=== PATIENT | female | born 1960 | race Caucasian/White ===

== ENCOUNTER 2016-09-21 08:35 | Day surgery (SDC) | payer BC ==
[~2016-09-21 08:35] MED LIST: Lactated Ringers 1,000 ML IV SCH; Sodium Chloride 0.9% 10 ML Syringe FLUSH PRN; Sodium Chloride 0.9% 2.5 ML Syringe FLUSH PRN
--- NOTE | 2016-09-21 09:46 | PCM.PREANE ---
Preanesthetic Assessment - Anesthesia/Transfusion/Family Hx Anesthesia History: Prior Anesthesia Without Reaction Other Type of Anesthesia Reaction Comment: hx: Nausea post anesthesia, hx: Motion sickness Family History of Anesthesia Reaction: No Transfusion History: No Prior Transfusion(s) Intubation History: Unknown - Review of Systems General: No Symptoms Pulmonary: No Symptoms Cardiovascular: No Symptoms Gastrointestinal: Difficulty Swallowing Neurological: No Symptoms Other: Reports: None - Physical Assessment Height: 1.61 m Weight: 111.584 kg ASA Class: 2 Mental Status: Alert & Oriented x3 Airway Class: Mallampati = 2 Dentition: Reports: Gate(s) (few at the bottom), Broken Tooth/Teeth (x1 lower jaw) Thyro-Mental Finger Breadths: 2 Mouth Opening Finger Breadths: 3 ROM/Head Extension: Limited/Partial Lungs: Clear to Auscultation, Normal Respiratory Effort Cardiovascular: Regular Rate, Regular Rhythm - Allergies Allergies/Adverse Reactions: Allergies Allergy/AdvReac Type Severity Reaction Status Date / Time nitrofurantoin Allergy Dizziness Verified 04/10/15 16:20 [From Macrobid] nitrofurantoin Allergy Dizziness Verified 04/10/15 16:20 macrocrystalline [From Macrobid] povidone-iodine Allergy Rash Verified 04/10/15 16:20 [From Betadine] soap [From Betadine] Allergy Rash Verified 04/10/15 16:20 spinach Allergy Anaphylactic Verified 04/10/15 16:20 Shock - Blood Blood Available: No - Anesthesia Plan Pre-Op Medication Ordered: None - Acknowledgements Anesthesia Type Planned: MAC Pt an Appropriate Candidate for the Planned Anesthesia: Yes Alternatives and Risks of Anesthesia Discussed w Pt/Guardian: Yes Pt/Guardian Understands and Agrees with Anesthesia Plan: Yes PreAnesthesia Questionnaire HEENT History: Reports: Other (See Below) Other HEENT History: wears glasses Cardiovascular History: Reports: Other (See Below) (occasional spikes in blood pressure) Respiratory History: Reports: SOB Other Respiratory History: "Use inhaler to relieve allergy induced SOB" Gastrointestinal History: Reports: GERD, Other (See Below) (IBS, difficulty swallowing (dysphagia)) Genitourinary History: Reports: None Musculoskeletal History: Reports: Back Pain, Chronic, Fracture Other Musculoskeletal History: hx: Fractured Rt Femur 10 yrs of age, Low back pain Neurological History: Reports: Migraines Other Neuro History: hx: Childhood Febrile Seizures, hx of migraines in the past Psychiatric History: Reports: Anxiety, Depression Other Psychiatric History: Mild depression, "no chronic issues" Endocrine/Metabolic History: Reports: Obesity/BMI 30+ (BMI 42.9) Immunologic History: Dermatologic History: Reports: Other (See Below) Other Dermatologic History: mx of MRSA under breast 11 yrs ago, - Past Surgical History Head Surgeries/Procedures: Reports: None HEENT Surgical History: Reports: Tonsillectomy GI Surgical History: Reports: Hernia, Inguinal, Hernia Repair/Other (umbilical) Other GI Surgeries/Procedures: Prior Umbilical hernia repair x2 Female Surgical History: Reports: Hysterectomy, Tubal Ligation Other Female Surgeries/Procedures: Vaginal Hysterectomy Musculoskeletal Surgical History: Reports: Other (See Below) Other Musculoskeletal Surgeries/Procedures:: closed reduction rt femur with cast application at age 10 - SUBSTANCE USE Smoking Status *Q: Never Smoker Recreational Drug Use History: No - HOME MEDS Home Medications: Home Meds Albuterol [Proair HFA] 1 - 2 inh INH ASDIRECTED PRN 04/10/15 [History] Montelukast Sodium 1 tab PO BEDTIME 04/10/15 [History] Omeprazole 20 mg PO DAILY 09/16/16 [History] - CURRENT (IN HOUSE) MEDS Current Meds: Current Medications Lactated Ringer's (Ringers, Lactated) 1,000 mls @ 125 mls/hr IV ASDIRECTED RACHEL Sodium Chloride (Saline Flush) 10 ml FLUSH ASDIRECTED PRN PRN Reason: Keep Vein Open Sodium Chloride (Saline Flush) 2.5 ml FLUSH ASDIRECTED PRN PRN Reason: Keep Vein Open
[2016-09-21] MEDS ORDERED: Lidocaine 2% 5 ML SDV ONE (10:10)
[2016-09-21] MEDS ORDERED: fentaNYL 100 MCG/2 ML SDV ONE (10:11)
[2016-09-21] MEDS ORDERED: Propofol 200 MG/20 ML SDV ONE (10:11)
[2016-09-21] MEDS ORDERED: Midazolam 1 MG/ML 2 ML SDV ONE (10:11)
--- NOTE | 2016-09-21 11:14 | PCM.OPNOTE ---
- General Post-Op/Procedure Note Date of Surgery/Procedure: 09/21/16 Operative Procedure(s): diagnostic EGD & Colonoscopy Findings: EGD: 1. Hiatal Hernia 2. Duodenitis 3. Duodenal Polyps Colonoscopy: 1. Sigmoid Diverticulosis 1. Cecal Polyp 2. Hepatic Flexure Polyp Pre Op Diagnosis: diagnostic EGD & Colonoscopy Post-Op Diagnosis: 1. Hiatal Hernia. 2. Duodenitis. 3. Duodenal Polyps. 4. Sigmoid Diverticulosis. 5. Cecal Polyp. 6. Hepatic Flexure Polyp Anesthesia Technique: [facility] Primary Surgeon: Oly Bynum Complications: None Condition: Good
--- NOTE | 2016-09-21 11:45 | PCM.POSTAN ---
POST ANESTHESIA ASSESSMENT - MENTAL STATUS Mental Status: Alert, Oriented - RESPIRATORY Respiratory Status: respiratory rate WNL - CARDIOVASCULAR CV Status: Pulse Rate WNL, Blood Pressure Stable - GASTROINTESTINAL GI Status: No Symptoms - PAIN Pain Score: 0 - POST OP HYDRATION Hydration Status: Adequate & Stable - OBSERVATIONS Free Text/Narrative:: no anesthesia problems
[2016-09-21 12:16] VITALS: BP 125/83
--- NOTE | 2016-09-23 06:15 | OR ---
SURGEON: OLIVER REYES MD DATE OF PROCEDURE: 09/21/2016 PREOPERATIVE DIAGNOSES: Dysphagia, screening colonoscopy. POSTOPERATIVE DIAGNOSES: 1. Hiatal hernia. 2. Duodenitis. 3. Duodenal polyps. 4. Sigmoid diverticulosis. 5. Cecal polyp. 6. Hepatic flexure polyp. 7. Grade 2 hemorrhoids. PROCEDURE PERFORMED: Diagnostic esophagogastroduodenoscopy and screening colonoscopy. ANESTHESIA: MAC. EXTENT OF EXAM: To the second portion of duodenum, to the cecum. INSTRUMENT USED: Olympus colonoscope and Olympus endoscope. PREPARATION: Good. LIMITATIONS: None. INDICATIONS: The patient is a 55-year-old female with a longstanding history of GERD, that has recently gotten worse. She is also in need of a screening colonoscopy as she has never had one done. The patient and I discussed the procedure as well as expected perioperative course. We discussed the risks, including bleeding, infection, or damage to surrounding structures, including perforation. The patient verbalized understanding and wished to proceed. PROCEDURE IN DETAIL: The patient was brought to the endoscopy suite and placed in a beach chair position. A time-out was completed verifying the patient's name, age, date of , allergies, and procedure to be performed. A bite-block was placed in the patient's mouth and monitored anesthesia care induced. Continuous oxygen was provided via nasal cannula throughout the procedure. After adequate sedation was achieved, the Olympus endoscope was placed in the patient's mouth and advanced under direct visualization to the level of the second portion of duodenum. This appeared normal and a photograph was taken. The scope was then fully withdrawn while examining the color, texture, anatomy, and integrity of the mucosa from the cecum to the anal canal. The duodenal bulb had multiple hyperplastic appearing polyps, some of which appeared to be inflamed with stigmata of bleeding. The largest area of these polyps was located anteriorly in the duodenal bulb. Biopsies were taken of this area, given I could not tell if this was a healing ulcer versus just duodenal polyps. The scope was then brought into the stomach and photographs were taken of the pylorus as well as the esophageal hiatus. The patient was noted to have a small type 1 hiatal hernia. The gastric mucosa appeared normal with no evidence of inflammation or ulceration. Biopsies were taken of the gastric antrum, body, and fundus and sent for H. pylori testing. The scope was then brought into the distal esophagus and a photograph was taken of the hiatal hernia sac. The sac itself did not appear overtly inflamed or with any evidence of ulceration. The distal esophagus had no evidence of esophagitis and the Z-line was sharp indicating that it was normal. The scope was then fully withdrawn and the remainder of the esophageal mucosa appeared normal. This portion of procedure was then terminated. The patient was placed in left lateral decubitus position. A digital rectal exam was performed. This showed grade 2 hemorrhoids. A well-lubricated colonoscope was then inserted in the rectum and advanced under direct visualization to the level of the cecum. The cecum was identified by both visual and anatomic landmarks. A photograph was taken of the cecal cap, however, due to significant looping of the scope more proximally, I was unable to retroflex the scope within the cecum. The scope was then fully withdrawn while examining the color, texture, anatomy, and integrity of the mucosa from the cecum to the anal canal. The patient had a 2 mm pedunculated polyp within the cecum as well as at the hepatic flexure. Both of these were removed with a cold biopsy forceps and sent to pathology. The patient was also noted to have sigmoid diverticulosis. The scope was then brought into the rectum and retroflexed to allow visualization of the anal canal opening. This confirmed the hemorrhoidal disease that I noted on my digital rectal exam, but was otherwise normal. The scope was then straightened out and then removed from the patient. The cecum to anus time was 11 minutes. The patient tolerated the procedure well and was taken to the PACU in stable condition. ENDOSCOPIC DIAGNOSES: Hiatal hernia, duodenitis, duodenal polyps, sigmoid diverticulosis, grade 2 hemorrhoids, cecal polyp, hepatic flexure polyp. RECOMMENDATIONS: We will have the patient continue on current medications. I will see her in followup in clinic in 2 to 3 weeks. CHAYA JONES /[id number]
== END 2016-09-21 11:52 | disposition home or self-care (01) ==
LOC: MW.SDS 08:35
PROVIDERS: ATTEND Surgery
PROC: 0DB98ZZ Excision of Duodenum, Via Natural or Artificial Opening Endoscopic (ICD-10-PCS; principal; 2016-09-21)
PROC: 0DB68ZZ Excision of Stomach, Via Natural or Artificial Opening Endoscopic (ICD-10-PCS; 2016-09-21)
PROC: 0DB78ZZ Excision of Stomach, Pylorus, Via Natural or Artificial Opening Endoscopic (ICD-10-PCS; 2016-09-21)
PROC: 0DBH8ZZ Excision of Cecum, Via Natural or Artificial Opening Endoscopic (ICD-10-PCS; 2016-09-21)
PROC: 0DBK8ZZ Excision of Ascending Colon, Via Natural or Artificial Opening Endoscopic (ICD-10-PCS; 2016-09-21)
DX: K29.80 Duodenitis without bleeding (principal); Z12.11 Encounter for screening for malignant neoplasm of colon; K29.50 Unspecified chronic gastritis without bleeding; K44.9 Diaphragmatic hernia without obstruction or gangrene; K21.9 Gastro-esophageal reflux disease without esophagitis; D12.0 Benign neoplasm of cecum; D12.3 Benign neoplasm of transverse colon; K57.30 Diverticulosis of large intestine without perforation or abscess without bleeding; K64.9 Unspecified hemorrhoids; K58.9 Irritable bowel syndrome, unspecified; J30.9 Allergic rhinitis, unspecified
CPT/HCPCS: 43239; 45380; J2250; J3010; J7120; 00740; 88305; 88312; J2704

== ENCOUNTER 2018-11-26 11:37 | Observation (INO) | payer BC ==
[2018-11-26] MEDS ORDERED: Sodium Chloride 0.9% 500 ML IV SCH (11:45)
--- NOTE | 2018-11-26 11:46 | EDM.PDOC ---
ED HPI GENERAL MEDICAL PROBLEM - General Stated Complaint: NUMBNESS, DIZZY, SHORTNESS OF BREATH Time Seen by Provider: 11/26/18 11:43 Source of Information: Reports: Patient - History of Present Illness INITIAL COMMENTS - FREE TEXT/NARRATIVE: HISTORY AND PHYSICAL: History of present illness: [Patient with recent pneumonia diagnosis on Levaquin day 5 of 7 with dizziness weakness increase shortness breath no fever nausea vomiting chills sweats no apparent distress] Review of systems: As per history of present illness and below otherwise all systems reviewed and negative. Past medical history: As per history of present illness and as reviewed below otherwise noncontributory. Surgical history: As per history of present illness and as reviewed below otherwise noncontributory. Social history: No reported history of drug or alcohol abuse. Family history: As per history of present illness and as reviewed below otherwise noncontributory. Physical exam: HEENT: Atraumatic, normocephalic, pupils reactive, negative for conjunctival pallor or scleral icterus, mucous membranes moist, throat clear, neck supple, nontender, trachea midline. Lungs: Clear to auscultation, breath sounds equal bilaterally, chest nontender. Heart: S1S2, regular, negative for clicks, rubs, or JVD. Abdomen: Soft, nondistended, nontender. Negative for masses or hepatosplenomegaly. Negative for costovertebral tenderness. Pelvis: Stable nontender. Genitourinary: Deferred. Rectal: Deferred. Extremities: Atraumatic, negative for cords or calf pain. Neurovascular unremarkable. Neuro: Awake, alert, oriented. Cranial nerves II through XII unremarkable. Cerebellum unremarkable. Motor and sensory unremarkable throughout. Exam nonfocal. Diagnostics: [CBC CMP UA troponin blood cultures 2 EKG Chest 1 view ] Therapeutics: Normal saline DuoNeb [ Zosyn ] Impression: [ pneumonia ] Conservative management Definitive disposition and diagnosis as appropriate pending reevaluation and review of above. low back Pain Score (Numeric/FACES): 4 - Related Data Allergies Allergy/AdvReac Type Severity Reaction Status Date / Time nitrofurantoin Allergy Dizziness Verified 04/10/15 16:20 [From Macrobid] nitrofurantoin Allergy Dizziness Verified 04/10/15 16:20 macrocrystalline [From Macrobid] povidone-iodine Allergy Rash Verified 04/10/15 16:20 [From Betadine] soap [From Betadine] Allergy Rash Verified 04/10/15 16:20 spinach Allergy Anaphylactic Verified 04/10/15 16:20 Shock Home Meds: Home Meds Albuterol [Proair HFA] 1 - 2 inh INH ASDIRECTED PRN 04/10/15 [History] Montelukast Sodium 1 tab PO BEDTIME 04/10/15 [History] Omeprazole 20 mg PO DAILY 09/16/16 [History] Past Medical History HEENT History: Reports: Other (See Below) Other HEENT History: wears glasses Cardiovascular History: Reports: Other (See Below) Respiratory History: Reports: SOB Other Respiratory History: "Use inhaler to relieve allergy induced SOB" Gastrointestinal History: Reports: GERD, Other (See Below) Genitourinary History: Reports: None Musculoskeletal History: Reports: Back Pain, Chronic, Fracture Other Musculoskeletal History: hx: Fractured Rt Femur 10 yrs of age, Low back pain Neurological History: Reports: Migraines Other Neuro History: hx: Childhood Febrile Seizures, hx of migraines in the past Psychiatric History: Reports: Anxiety, Depression Other Psychiatric History: Mild depression, "no chronic issues" Endocrine/Metabolic History: Reports: Obesity/BMI 30+ Immunologic History: Dermatologic History: Reports: Other (See Below) Other Dermatologic History: mx of MRSA under breast 11 yrs ago, - Past Surgical History Head Surgeries/Procedures: Reports: None HEENT Surgical History: Reports: Tonsillectomy GI Surgical History: Reports: Hernia, Inguinal, Hernia Repair/Other Other GI Surgeries/Procedures: Prior Umbilical hernia repair x2 Female Surgical History: Reports: Hysterectomy, Tubal Ligation Other Female Surgeries/Procedures: Vaginal Hysterectomy Musculoskeletal Surgical History: Reports: Other (See Below) Other Musculoskeletal Surgeries/Procedures:: closed reduction rt femur with cast application at age 10 ED ROS GENERAL - Review of Systems Review Of Systems: See Below ED EXAM, GENERAL - Physical Exam Exam: See Below Course - Vital Signs Last Recorded V/S: Last Vital Signs Temp 97.7 F 11/26/18 11:50 Pulse 72 11/26/18 13:05 Resp 18 11/26/18 13:05 BP 151/83 H 11/26/18 13:05 Pulse Ox 94 L 11/26/18 13:05 - Orders/Labs/Meds Orders: Active Orders 24 hr Category Date Time Status EKG Documentation Completion [RC] STAT Care 11/26/18 11:43 Active RT Aerosol Therapy [RC] ASDIRECTED Care 11/26/18 11:58 Active CULTURE BLOOD [BC] Stat Lab 11/26/18 13:34 Ordered CULTURE BLOOD [BC] Stat Lab 11/26/18 13:34 Ordered CULTURE URINE [RM] Stat Lab 11/26/18 12:05 Received Piperacillin/Tazobactam [Piperacil-Tazobact] 3.375 gm Med 11/26/18 13:32 Active Sodium Chloride 0.9% [Normal Saline] 50 ml IV ONETIME Sodium Chloride 0.9% [Normal Saline] 1,000 ml Med 11/26/18 13:45 Active IV STAT Sodium Chloride 0.9% [Normal Saline] 500 ml Med 11/26/18 11:45 Active IV STAT Blood Culture x2 Reflex Set [OM.PC] Stat Oth 11/26/18 13:34 Ordered Medication Orders Sodium Chloride (Normal Saline) 500 mls @ 999 mls/hr IV STAT RACHEL Last Admin: 11/26/18 12:17 Dose: 999 mls/hr Piperacillin Sod/Tazobactam (Sod 3.375 gm/ Sodium Chloride) 50 mls @ 100 mls/ hr IV ONETIME ONE Stop: 11/26/18 14:01 Sodium Chloride (Normal Saline) 1,000 mls @ 125 mls/hr IV STAT [facility] Labs: Laboratory Tests 11/26/18 11/26/18 11/26/18 Range/Units 11:56 11:56 12:05 WBC 12.46 H (4.0-11.0) K/uL RBC 5.06 (4.30-5.90) M/uL Hgb 15.0 (12.0-16.0) g/dL Hct 46.7 H (36.0-46.0) % MCV 92.3 (80.0-98.0) fL MCH 29.6 (27.0-32.0) pg MCHC 32.1 (31.0-37.0) g/dL RDW Std Deviation 46.7 (28.0-62.0) fl RDW Coeff of Noah 14 (11.0-15.0) % Plt Count 315 (150-400) K/uL MPV 10.00 (7.40-12.00) fL Neut % (Auto) 85.0 H (48.0-80.0) % Lymph % (Auto) 10.8 L (16.0-40.0) % [place] % (Auto) 3.7 (0.0-15.0) % Eos % (Auto) 0.2 (0.0-7.0) % Baso % (Auto) 0.3 (0.0-1.5) % Neut # (Auto) 10.6 H (1.4-5.7) K/uL Lymph # (Auto) 1.4 (0.6-2.4) K/uL [place] # (Auto) 0.5 (0.0-0.8) K/uL Eos # (Auto) 0.0 (0.0-0.7) K/uL Baso # (Auto) 0.0 (0.0-0.1) K/uL Nucleated RBC % 0.0 /100WBC Nucleated RBCs # 0 K/uL Sodium 142 (136-145) mmol/L Potassium 3.6 (3.5-5.1) mmol/L Chloride 106 (98-107) mmol/L Carbon Dioxide 26.2 (21.0-32.0) mmol/L BUN 18 (7.0-18.0) mg/dL Creatinine 0.9 (0.6-1.0) mg/dL Est Cr Clr Drug Dosing 57.40 mL/min Estimated GFR (MDRD) > 60.0 ml/min Glucose 123 H (74-106) mg/dL Calcium 8.5 (8.5-10.1) mg/dL Total Bilirubin 0.7 (0.2-1.0) mg/dL AST 15 (15-37) IU/L ALT 13 L (14-63) IU/L Alkaline Phosphatase 111 (46-116) U/L Troponin I < 0.050 (0.000-0.056) ng/mL Total Protein 6.9 (6.4-8.2) g/dL Albumin 2.9 L (3.4-5.0) g/dL Globulin 4.0 (2.6-4.0) g/dL Albumin/Globulin Ratio 0.7 L (0.9-1.6) Urine Color YELLOW Urine Appearance HAZY Urine pH 6.5 (5.0-8.0) Ur Specific [place] 1.025 (1.001-1.035) Urine Protein NEGATIVE (NEGATIVE) mg/dL Urine Glucose (UA) NEGATIVE (NEGATIVE) mg/dL Urine Ketones NEGATIVE (NEGATIVE) mg/dL Urine Occult Blood TRACE-INTACT H (NEGATIVE) Urine Nitrite NEGATIVE (NEGATIVE) Urine Bilirubin NEGATIVE (NEGATIVE) Urine Urobilinogen 0.2 (<2.0) EU/dL Ur Leukocyte Esterase SMALL H (NEGATIVE) Urine RBC 1-3 (0-2/HPF) Urine WBC 0-3 (0-5/HPF) Ur Epithelial Cells FEW (NONE-FEW) Urine Bacteria FEW (NEGATIVE) Urine Mucus LIGHT (NONE-MOD) Meds: Medications Generic Name Dose Route Start Last Admin Trade Name Freq PRN Reason Stop Dose Admin Sodium Chloride 500 mls @ 999 mls/hr 11/26/18 11:45 11/26/18 12:17 Normal Saline IV 999 mls/hr STAT RACHEL Administration Piperacillin Sod/Tazobactam 50 mls @ 100 mls/hr 11/26/18 13:32 Sod 3.375 gm/ Sodium Chloride IV 11/26/18 14:01 ONETIME ONE Sodium Chloride 1,000 mls @ 125 mls/hr 11/26/18 13:45 Normal Saline IV STAT RACHEL Discontinued Medications Generic Name Dose Route Start Last Admin Trade Name Freq PRN Reason Stop Dose Admin Albuterol/Ipratropium 3 ml 11/26/18 11:58 11/26/18 12:16 Duoneb 3.0-0.5 Mg/3 Ml NEB 11/26/18 11:59 3 ml ONETIME ONE Administration Departure - Departure Time of Disposition: 13:51 Disposition: Refer to Observation Condition: Fair Clinical Impression: Pneumonia - Discharge Information Referrals: Marisol Coronel PA [Primary Care Provider] - - My Orders Last 24 Hours: My Active Orders 11/26/18 11:43 EKG Documentation Completion [RC] STAT 11/26/18 11:45 Sodium Chloride 0.9% [Normal Saline] 500 ml IV STAT 11/26/18 11:58 RT Aerosol Therapy [RC] ASDIRECTED 11/26/18 12:05 CULTURE URINE [RM] Stat 11/26/18 13:32 Piperacillin/Tazobactam [Piperacil-Tazobact] 3.375 gm Sodium Chloride 0.9% [ Normal Saline] 50 ml IV ONETIME 11/26/18 13:34 CULTURE BLOOD [BC] Stat CULTURE BLOOD [BC] Stat Blood Culture x2 Reflex Set [OM.PC] Stat 11/26/18 13:45 Sodium Chloride 0.9% [Normal Saline] 1,000 ml IV STAT - Assessment/Plan Last 24 Hours: My Active Orders 11/26/18 11:43 EKG Documentation Completion [RC] STAT 11/26/18 11:45 Sodium Chloride 0.9% [Normal Saline] 500 ml IV STAT 11/26/18 11:58 RT Aerosol Therapy [RC] ASDIRECTED 11/26/18 12:05 CULTURE URINE [RM] Stat 11/26/18 13:32 Piperacillin/Tazobactam [Piperacil-Tazobact] 3.375 gm Sodium Chloride 0.9% [ Normal Saline] 50 ml IV ONETIME 11/26/18 13:34 CULTURE BLOOD [BC] Stat CULTURE BLOOD [BC] Stat Blood Culture x2 Reflex Set [OM.PC] Stat 11/26/18 13:45 Sodium Chloride 0.9% [Normal Saline] 1,000 ml IV STAT
[2018-11-26] MEDS ORDERED: Albuterol/Ipratropium 3.0-0.5 MG/3 ML Neb Soln NEB ONE (11:58)
[2018-11-26 12:37] LABS: BLOOD UREA NITROGEN,BUN 18 mg/dL (7.0-18.0); CARBON DIOXIDE,CO2 26.2 mmol/L (21.0-32.0); CHLORIDE,CL 106 mmol/L (98-107); GLUCOSE RANDOM 123 mg/dL (74-106); POTASSIUM,K 3.6 mmol/L (3.5-5.1); SODIUM,NA 142 mmol/L (136-145)
--- NOTE | 2018-11-26 12:56 | CR ---
Chest: Portable view of the chest was obtained. Comparison: Prior chest x-ray of 11/21/18. Slight increasing density within the lateral left costophrenic angle is seen when compared to prior study. Lungs otherwise are clear. Heart size and mediastinum are normal. Bony structures are unremarkable. Impression: 1. Slight increasing density within the lateral left costophrenic angle. Differential includes mild atelectasis versus minimal area of pneumonia. 2. Portable chest x-ray is otherwise unremarkable. Diagnostic code #3 MTDD
[2018-11-26] MEDS ORDERED: Piperacillin/Tazobactam 3.375 GM in Sodium Chloride 0.9% 50 ML IV ONE (13:32)
[2018-11-26] MEDS: Sodium Chloride 0.9% 1,000 ML IV SCH ×2 (13:56→21:35)
--- NOTE | 2018-11-26 14:38 | PCM.HP.2 ---
H&P History of Present Illness - General Date of Service: 11/26/18 Admit Problem/Dx: Admission Diagnosis/Problem Admission Diagnosis/Problem Pneumonia Source of Information: Patient History Limitations: Reports: No Limitations - History of Present Illness Initial Comments - Free Text/Narative: This 58 year old female with pmh of asthma and obesity presented to the ED today with concerns of shortness of breath, productive cough,dizziness, and overall just not feeling well. She reports she was diagnosed with pneumonia last week with her PCP, she was given Levaquin, on day 5 of 7 treatment. She reports she initially started feeling improved, then started feeling ill again yesterday and today. She denies overt fevers, but has some mild chills. She reports productive sputum, sinus congestion, and headache. She reports mild wheezing, she took her rescue inhaler this morning with mild improvement in symptoms. She denies chest pain, palpitations or abdominal pain. No urinary symptoms or diarrhea. She recently felt constipated and did take a laxative, which helped relieve constipation. She denies tobacco use, rare alcohol use and no recreational drug use. In the ED, mild leukocytosis noted at 12,460, BMP WNL, glucose mildly elevated at 123, Troponin negative. EKG SR with no ischemic changes. CXR reveled increasing density at left costophrenic angle. BC, UC and sputum culture to be obtained. VS stable in ED. She was treated with Zosyn. She will be admitted for failed outpatient management of CAP. PCP, Marisol Coronel. low back Pain Score (Numeric/FACES): 4 - Related Data Allergies/Adverse Reactions: Allergies Allergy/AdvReac Type Severity Reaction Status Date / Time nitrofurantoin Allergy Dizziness Verified 04/10/15 16:20 [From Macrobid] nitrofurantoin Allergy Dizziness Verified 04/10/15 16:20 macrocrystalline [From Macrobid] povidone-iodine Allergy Rash Verified 04/10/15 16:20 [From Betadine] soap [From Betadine] Allergy Rash Verified 04/10/15 16:20 spinach Allergy Anaphylactic Verified 04/10/15 16:20 Shock Home Medications: Home Meds Albuterol [Proair HFA] 1 - 2 inh INH ASDIRECTED PRN 04/10/15 [History] Montelukast Sodium 1 tab PO BEDTIME 04/10/15 [History] Omeprazole 20 mg PO DAILY 09/16/16 [History] Past Medical History HEENT History: Reports: Other (See Below) Other HEENT History: wears glasses Cardiovascular History: Reports: None. Denies: High Cholesterol, Hypertension, [place], Stents Respiratory History: Reports: Asthma. Denies: COPD Gastrointestinal History: Reports: GERD Genitourinary History: Reports: None. Denies: Chronic Renal Insuffiency Musculoskeletal History: Reports: Back Pain, Chronic, Fracture Other Musculoskeletal History: hx: Fractured Rt Femur 10 yrs of age, Low back pain Neurological History: Reports: Migraines. Denies: CVA, TIA Other Neuro History: hx: Childhood Febrile Seizures Psychiatric History: Reports: Anxiety, Depression Endocrine/Metabolic History: Reports: Obesity/BMI 30+ Immunologic History: Dermatologic History: Reports: Other (See Below) Other Dermatologic History: mx of MRSA under breast 11 yrs ago, - Infectious Disease History Infectious Disease History: Reports: Chicken Pox, MRSA, Mumps - Past Surgical History Head Surgeries/Procedures: Reports: None HEENT Surgical History: Reports: Tonsillectomy GI Surgical History: Reports: Hernia, Inguinal, Hernia Repair/Other Other GI Surgeries/Procedures: Prior Umbilical hernia repair x2 Female Surgical History: Reports: Hysterectomy, Tubal Ligation Other Female Surgeries/Procedures: Vaginal Hysterectomy Musculoskeletal Surgical History: Reports: Other (See Below) Other Musculoskeletal Surgeries/Procedures:: closed reduction rt femur with cast application at age 10 Dermatological Surgical History: Reports: Skin Graft Social & Family History - Family History Family Medical History: Noncontributory - Tobacco Use Smoking Status *Q: Never Smoker - Alcohol Use Alcohol Use Frequency: Rarely - Recreational Drug Use Recreational Drug Use: No - Living Situation & Occupation Living situation: Reports: Occupation: Employed H&P Review of Systems - Review of Systems: Review Of Systems: See Below General: Reports: Chills, Malaise, Fatigue HEENT: Reports: Headaches (frontal mild), Sinus Congestion Pulmonary: Reports: Shortness of Breath, Wheezing, Cough, Sputum Cardiovascular: Reports: Dyspnea on Exertion, Lightheadedness. Denies: Chest Pain, Edema Gastrointestinal: Reports: No Symptoms. Denies: Abdominal Pain, Black Stool, Bloody Stool, Diarrhea, Nausea, Vomiting Genitourinary: Reports: No Symptoms. Denies: Dysuria, Frequency, Burning, Flank Pain Musculoskeletal: Reports: No Symptoms Skin: Reports: No Symptoms Psychiatric: Reports: No Symptoms Neurological: Reports: No Symptoms Exam - Exam Exam: See Below - Vital Signs Vital Signs: Last Vital Signs Temp 97.6 F 11/26/18 14:08 Pulse 68 11/26/18 14:08 Resp 18 11/26/18 14:08 BP 162/84 H 11/26/18 14:08 Pulse Ox 94 L 11/26/18 14:08 Weight: 116.12 kg - Exam Quality Assessment: Supplemental Oxygen General: Alert, Oriented HEENT: Conjunctiva Clear, Mucosa Moist & [place], Posterior Pharynx Clear Lungs: Normal Respiratory Effort, Crackles (fine crackles to L base). No: Wheezing Cardiovascular: Regular Rate, Regular Rhythm, Normal S1, Normal S2. No: Systolic Murmur GI/Abdominal Exam: Normal Bowel Sounds, Soft, Non-Tender Extremities: Normal Inspection, Normal Range of Motion, Non-Tender, No Pedal Edema Neuro Extensive - Mental Status: Alert, Oriented x3, Normal Mood/Affect Neuro Extensive - Motor, Sensory, Reflexes: CN II-XII Intact Psychiatric: Alert, Normal Affect, Normal Mood - Patient Data Lab Results Last 24 hrs: Laboratory Results - last 24 hr 11/26/18 11/26/18 11/26/18 Range/Units 11:56 11:56 12:05 WBC 12.46 H (4.0-11.0) K/uL RBC 5.06 (4.30-5.90) M/uL Hgb 15.0 (12.0-16.0) g/dL Hct 46.7 H (36.0-46.0) % MCV 92.3 (80.0-98.0) fL MCH 29.6 (27.0-32.0) pg MCHC 32.1 (31.0-37.0) g/dL RDW Std Deviation 46.7 (28.0-62.0) fl RDW Coeff of Noah 14 (11.0-15.0) % Plt Count 315 (150-400) K/uL MPV 10.00 (7.40-12.00) fL Neut % (Auto) 85.0 H (48.0-80.0) % Lymph % (Auto) 10.8 L (16.0-40.0) % [place] % (Auto) 3.7 (0.0-15.0) % Eos % (Auto) 0.2 (0.0-7.0) % Baso % (Auto) 0.3 (0.0-1.5) % Neut # (Auto) 10.6 H (1.4-5.7) K/uL Lymph # (Auto) 1.4 (0.6-2.4) K/uL [place] # (Auto) 0.5 (0.0-0.8) K/uL Eos # (Auto) 0.0 (0.0-0.7) K/uL Baso # (Auto) 0.0 (0.0-0.1) K/uL Nucleated RBC % 0.0 /100WBC Nucleated RBCs # 0 K/uL Sodium 142 (136-145) mmol/L Potassium 3.6 (3.5-5.1) mmol/L Chloride 106 (98-107) mmol/L Carbon Dioxide 26.2 (21.0-32.0) mmol/L BUN 18 (7.0-18.0) mg/dL Creatinine 0.9 (0.6-1.0) mg/dL Est Cr Clr Drug Dosing 57.40 mL/min Estimated GFR (MDRD) > 60.0 ml/min Glucose 123 H (74-106) mg/dL Calcium 8.5 (8.5-10.1) mg/dL Total Bilirubin 0.7 (0.2-1.0) mg/dL AST 15 (15-37) IU/L ALT 13 L (14-63) IU/L Alkaline Phosphatase 111 (46-116) U/L Troponin I < 0.050 (0.000-0.056) ng/mL Total Protein 6.9 (6.4-8.2) g/dL Albumin 2.9 L (3.4-5.0) g/dL Globulin 4.0 (2.6-4.0) g/dL Albumin/Globulin Ratio 0.7 L (0.9-1.6) Urine Color YELLOW Urine Appearance HAZY Urine pH 6.5 (5.0-8.0) Ur Specific [place] 1.025 (1.001-1.035) Urine Protein NEGATIVE (NEGATIVE) mg/dL Urine Glucose (UA) NEGATIVE (NEGATIVE) mg/dL Urine Ketones NEGATIVE (NEGATIVE) mg/dL Urine Occult Blood TRACE-INTACT H (NEGATIVE) Urine Nitrite NEGATIVE (NEGATIVE) Urine Bilirubin NEGATIVE (NEGATIVE) Urine Urobilinogen 0.2 (<2.0) EU/dL Ur Leukocyte Esterase SMALL H (NEGATIVE) Urine RBC 1-3 (0-2/HPF) Urine WBC 0-3 (0-5/HPF) Ur Epithelial Cells FEW (NONE-FEW) Urine Bacteria FEW (NEGATIVE) Urine Mucus LIGHT (NONE-MOD) Result Diagrams: 11/26/18 11:56 11/26/18 11:56 EKG INTERPRETATION EKG Date: 11/26/18 Rhythm: NSR P-Wave: Present QRS: Normal ST-T: Normal QT: Normal *Q Meaningful Use (ADM) - VTE Risk Assess *Q Each Risk Factor Represents 1 Point: Obesity ( BMI > 25 kg/m2), Serious lung disease including pneumonia Total Score 1 Point Risk Factors: 2 Each Risk Factor Represents 2 Points: Age 60 - 74 Years Total Score 2 Point Risk Factors: 2 Each Risk Factor Represents 3 Points: None Total Score 3 Point Risk Factors: 0 Each Risk Factor Represents 5 Points: None Total Score 5 Point Risk Factors: 0 Venous Thromboembolism Risk Factor Score *Q: 4 - Problem List (1) CAP (community acquired pneumonia) SNOMED Code(s): 908333549 ICD Code: J18.9 - PNEUMONIA, UNSPECIFIED ORGANISM Status: Acute Current Visit: Yes Qualifiers: Laterality: left Lung location: lower lobe of lung Qualified Code(s): J18.1 - Lobar pneumonia, unspecified organism (2) History of asthma SNOMED Code(s): 008296401 ICD Code: Z87.09 - PERSONAL HISTORY OF OTHER DISEASES OF THE RESPIRATORY SYSTEM Status: Chronic Current Visit: Yes (3) GERD (gastroesophageal reflux disease) SNOMED Code(s): 811077082 ICD Code: K21.9 - GASTRO-ESOPHAGEAL REFLUX DISEASE WITHOUT ESOPHAGITIS Status: Chronic Current Visit: Yes Qualifiers: Esophagitis presence: esophagitis presence not specified Qualified Code(s) : K21.9 - Gastro-esophageal reflux disease without esophagitis (4) Obesity SNOMED Code(s): 206779699, 165301430 ICD Code: E66.9 - OBESITY, UNSPECIFIED Status: Chronic Current Visit: Yes Problem List Initiated/Reviewed/Updated: Yes Orders Last 24hrs: Active Orders 24 hr Category Date Time Status Admission Status [Patient Status] [ADT] Stat ADT 11/26/18 13:52 Active EKG Documentation Completion [RC] STAT Care 11/26/18 11:43 Active RT Aerosol Therapy [RC] ASDIRECTED Care 11/26/18 11:58 Active CULTURE BLOOD [BC] Stat Lab 11/26/18 13:34 Ordered CULTURE BLOOD [BC] Stat Lab 11/26/18 13:34 Ordered CULTURE URINE [RM] Stat Lab 11/26/18 12:05 Received Sodium Chloride 0.9% [Normal Saline] 1,000 ml Med 11/26/18 13:45 Active IV STAT Sodium Chloride 0.9% [Normal Saline] 500 ml Med 11/26/18 11:45 Active IV STAT Blood Culture x2 Reflex Set [OM.PC] Stat Oth 11/26/18 13:34 Ordered Medication Orders Sodium Chloride (Normal Saline) 500 mls @ 999 mls/hr IV STAT RACHEL Last Admin: 11/26/18 12:17 Dose: 999 mls/hr Sodium Chloride (Normal Saline) 1,000 mls @ 125 mls/hr IV STAT RACHEL Last Admin: 11/26/18 13:56 Dose: 125 mls/hr Assessment/Plan Comment:: This 58 year old female admitted with failed outpatient management of CAP with hx of asthma 1. CAP: Will discontinue Levaquin. Continue Zosyn, will add Azithromycin for atypical coverage. BC pending, will obtain sputum if possible. Duonebs PRN. 2. Asthma: Stable, no currently wheezing. Duonebs PRN, Continue Symbicort. 3. GERD: Continue Omeprazole. VTE prophylaxis: Lovenox. Dispo: 1-2 days pending improvement. - Mortality Measure Prognosis:: Good
[2018-11-26] MEDS ORDERED: Acetaminophen 325 MG Tab PO PRN (15:04)
[2018-11-26] MEDS ORDERED: Albuterol/Ipratropium 3.0-0.5 MG/3 ML Neb Soln NEB PRN (15:04)
[2018-11-26] MEDS ORDERED: Ondansetron 4 MG/2 ML SDV IVPUSH PRN (15:04)
[2018-11-26] MEDS: Azithromycin 250 MG Tab PO SCH (15:47)
[2018-11-26] MEDS: Enoxaparin 40 MG/0.4 ML Syringe SUBCUT SCH (15:47)
[2018-11-26] MEDS: Piperacillin/Tazobactam 3.375 GM in Sodium Chloride 0.9% 50 ML IV SCH (21:00)
[2018-11-27] MEDS: Piperacillin/Tazobactam 3.375 GM in Sodium Chloride 0.9% 50 ML IV SCH ×4 (02:01→20:30)
[2018-11-27] MEDS: Sodium Chloride 0.9% 1,000 ML IV SCH (06:05)
[2018-11-27 06:38] LABS: BLOOD UREA NITROGEN,BUN 15 mg/dL (7.0-18.0); CARBON DIOXIDE,CO2 24.3 mmol/L (21.0-32.0); CHLORIDE,CL 113 mmol/L (98-107); GLUCOSE RANDOM 91 mg/dL (74-106); POTASSIUM,K 3.7 mmol/L (3.5-5.1); SODIUM,NA 146 mmol/L (136-145)
[2018-11-27] MEDS: Omeprazole 20 MG Cap.CR PO SCH (08:35)
[2018-11-27] MEDS: DULoxetine 30 MG Cap PO SCH (08:35)
[2018-11-27] MEDS: FORMOTEROL FUMARATE INH SCH ×2 (08:37→20:25)
[2018-11-27] MEDS: BUDESONIDE INH SCH ×2 (08:37→20:25)
--- NOTE | 2018-11-27 09:20 | PCM.PN ---
- General Info Date of Service: 11/27/18 Admission Dx/Problem (Free Text): Admission Diagnosis/Problem Admission Diagnosis/Problem Pneumonia Subjective Update: Feeling tight this morning, having some shortness of breath with ambulation and wheezing. Congested non productive cough this morning. No chest pain. Feeling about the same as yesterday. NO fevers. No dizziness Functional Status: Reports: Pain Controlled, Tolerating Diet, Ambulating, Urinating - Review of Systems General: Reports: Fatigue, Malaise HEENT: Denies: Ear Pain, Headaches, Sore Throat, Visual Changes Pulmonary: Reports: Shortness of Breath, Cough, Wheezing. Denies: Sputum Cardiovascular: Reports: Dyspnea on Exertion. Denies: Chest Pain, Edema, Lightheadedness Gastrointestinal: Reports: No Symptoms. Denies: Abdominal Pain, Nausea, Vomiting Genitourinary: Reports: No Symptoms. Denies: Dysuria, Frequency, Burning Musculoskeletal: Reports: No Symptoms Skin: Reports: No Symptoms Neurological: Reports: No Symptoms Psychiatric: Reports: No Symptoms - Patient Data Vitals - Most Recent: Last Vital Signs Temp 97.1 F 11/27/18 07:31 Pulse 73 11/27/18 07:31 Resp 20 11/27/18 07:31 BP 136/82 11/27/18 07:31 Pulse Ox 96 11/27/18 07:31 Weight - Most Recent: 116.12 kg I&O - Last 24 Hours: Intake & Output 11/26/18 11/27/18 11/27/18 22:59 06:59 14:59 Intake Total 1496 1715 50 Output Total 0 700 Balance 1496 1015 50 Lab Results Last 24 Hours: Laboratory Results - last 24 hr 11/26/18 11/26/18 11/26/18 Range/Units 11:56 11:56 12:05 WBC 12.46 H (4.0-11.0) K/uL RBC 5.06 (4.30-5.90) M/uL Hgb 15.0 (12.0-16.0) g/dL Hct 46.7 H (36.0-46.0) % MCV 92.3 (80.0-98.0) fL MCH 29.6 (27.0-32.0) pg MCHC 32.1 (31.0-37.0) g/dL RDW Std Deviation 46.7 (28.0-62.0) fl RDW Coeff of Noah 14 (11.0-15.0) % Plt Count 315 (150-400) K/uL MPV 10.00 (7.40-12.00) fL Neut % (Auto) 85.0 H (48.0-80.0) % Lymph % (Auto) 10.8 L (16.0-40.0) % [place] % (Auto) 3.7 (0.0-15.0) % Eos % (Auto) 0.2 (0.0-7.0) % Baso % (Auto) 0.3 (0.0-1.5) % Neut # (Auto) 10.6 H (1.4-5.7) K/uL Lymph # (Auto) 1.4 (0.6-2.4) K/uL [place] # (Auto) 0.5 (0.0-0.8) K/uL Eos # (Auto) 0.0 (0.0-0.7) K/uL Baso # (Auto) 0.0 (0.0-0.1) K/uL Nucleated RBC % 0.0 /100WBC Nucleated RBCs # 0 K/uL Sodium 142 (136-145) mmol/L Potassium 3.6 (3.5-5.1) mmol/L Chloride 106 (98-107) mmol/L Carbon Dioxide 26.2 (21.0-32.0) mmol/L BUN 18 (7.0-18.0) mg/dL Creatinine 0.9 (0.6-1.0) mg/dL Est Cr Clr Drug Dosing 57.40 mL/min Estimated GFR (MDRD) > 60.0 ml/min Glucose 123 H (74-106) mg/dL Calcium 8.5 (8.5-10.1) mg/dL Magnesium (1.8-2.4) mg/dL Total Bilirubin 0.7 (0.2-1.0) mg/dL AST 15 (15-37) IU/L ALT 13 L (14-63) IU/L Alkaline Phosphatase 111 (46-116) U/L Troponin I < 0.050 (0.000-0.056) ng/mL Total Protein 6.9 (6.4-8.2) g/dL Albumin 2.9 L (3.4-5.0) g/dL Globulin 4.0 (2.6-4.0) g/dL Albumin/Globulin Ratio 0.7 L (0.9-1.6) Urine Color YELLOW Urine Appearance HAZY Urine pH 6.5 (5.0-8.0) Ur Specific [place] 1.025 (1.001-1.035) Urine Protein NEGATIVE (NEGATIVE) mg/dL Urine Glucose (UA) NEGATIVE (NEGATIVE) mg/dL Urine Ketones NEGATIVE (NEGATIVE) mg/dL Urine Occult Blood TRACE-INTACT H (NEGATIVE) Urine Nitrite NEGATIVE (NEGATIVE) Urine Bilirubin NEGATIVE (NEGATIVE) Urine Urobilinogen 0.2 (<2.0) EU/dL Ur Leukocyte Esterase SMALL H (NEGATIVE) Urine RBC 1-3 (0-2/HPF) Urine WBC 0-3 (0-5/HPF) Ur Epithelial Cells FEW (NONE-FEW) Urine Bacteria FEW (NEGATIVE) Urine Mucus LIGHT (NONE-MOD) 11/27/18 11/27/18 Range/Units 06:15 06:15 WBC 10.47 (4.0-11.0) K/uL RBC 4.48 (4.30-5.90) M/uL Hgb 13.2 (12.0-16.0) g/dL Hct 41.7 (36.0-46.0) % MCV 93.1 (80.0-98.0) fL MCH 29.5 (27.0-32.0) pg MCHC 31.7 (31.0-37.0) g/dL RDW Std Deviation 48.1 (28.0-62.0) fl RDW Coeff of [place] 14 (11.0-15.0) % Plt Count 281 (150-400) K/uL MPV 9.50 (7.40-12.00) fL Neut % (Auto) 57.6 (48.0-80.0) % Lymph % (Auto) 30.6 (16.0-40.0) % [place] % (Auto) 9.3 (0.0-15.0) % Eos % (Auto) 2.0 (0.0-7.0) % Baso % (Auto) 0.5 (0.0-1.5) % Neut # (Auto) 6.0 H (1.4-5.7) K/uL Lymph # (Auto) 3.2 H (0.6-2.4) K/uL [place] # (Auto) 1.0 H (0.0-0.8) K/uL Eos # (Auto) 0.2 (0.0-0.7) K/uL Baso # (Auto) 0.1 (0.0-0.1) K/uL Nucleated RBC % 0.0 /100WBC Nucleated RBCs # 0 K/uL Sodium 146 H (136-145) mmol/L Potassium 3.7 (3.5-5.1) mmol/L Chloride 113 H (98-107) mmol/L Carbon Dioxide 24.3 (21.0-32.0) mmol/L BUN 15 (7.0-18.0) mg/dL Creatinine 0.8 (0.6-1.0) mg/dL Est Cr Clr Drug Dosing 64.58 mL/min Estimated GFR (MDRD) > 60.0 ml/min Glucose 91 (74-106) mg/dL Calcium 7.9 L (8.5-10.1) mg/dL Magnesium 1.9 (1.8-2.4) mg/dL Total Bilirubin (0.2-1.0) mg/dL AST (15-37) IU/L ALT (14-63) IU/L Alkaline Phosphatase (46-116) U/L Troponin I (0.000-0.056) ng/mL Total Protein (6.4-8.2) g/dL Albumin (3.4-5.0) g/dL Globulin (2.6-4.0) g/dL Albumin/Globulin Ratio (0.9-1.6) Urine Color Urine Appearance Urine pH (5.0-8.0) Ur Specific [place] (1.001-1.035) Urine Protein (NEGATIVE) mg/dL Urine Glucose (UA) (NEGATIVE) mg/dL Urine Ketones (NEGATIVE) mg/dL Urine Occult Blood (NEGATIVE) Urine Nitrite (NEGATIVE) Urine Bilirubin (NEGATIVE) Urine Urobilinogen (<2.0) EU/dL Ur Leukocyte Esterase (NEGATIVE) Urine RBC (0-2/HPF) Urine WBC (0-5/HPF) Ur Epithelial Cells (NONE-FEW) Urine Bacteria (NEGATIVE) Urine Mucus (NONE-MOD) Med Orders - Current: Current Medications Acetaminophen (Tylenol) 650 mg PO Q4H PRN PRN Reason: Pain (mild 1-3) Last Admin: 11/26/18 15:47 Dose: 650 mg Albuterol/Ipratropium (Duoneb 3.0-0.5 Mg/3 Ml) 3 ml NEB Q4HRRT PRN PRN Reason: Shortness Of Breath/wheezing Last Admin: 11/27/18 08:37 Dose: 3 ml Azithromycin (Zithromax) 500 mg PO Q24H [facility] Last Admin: 11/26/18 15:47 Dose: 500 mg Duloxetine HCl (Cymbalta) 30 mg PO DAILY [facility] Last Admin: 11/27/18 08:35 Dose: 30 mg Enoxaparin Sodium (Lovenox) 40 mg SUBCUT Q24H [facility] Last Admin: 11/26/18 15:47 Dose: 40 mg Piperacillin Sod/Tazobactam (Sod 3.375 gm/ Sodium Chloride) 50 mls @ 100 mls/ hr IV Q6H [facility] Last Admin: 11/27/18 08:23 Dose: 100 mls/hr Methylprednisolone Sodium Succinate (Solu-Medrol) 40 mg IVPUSH Q12H [facility] Montelukast Sodium (Singulair) 10 mg PO BEDTIME [facility] Omeprazole (Omeprazole) 20 mg PO ACBREAKFAST [facility] Last Admin: 11/27/18 08:35 Dose: 20 mg Ondansetron HCl (Zofran) 4 mg IVPUSH Q4H PRN PRN Reason: Nausea Budesonide/Formoterol Fumarate [Symbicort 80-4.5mcg ] 2 each INH BID [facility] Last Admin: 11/27/18 08:37 Dose: 2 each Discontinued Medications Albuterol/Ipratropium (Duoneb 3.0-0.5 Mg/3 Ml) 3 ml NEB ONETIME ONE Stop: 11/26/18 11:59 Last Admin: 11/26/18 12:16 Dose: 3 ml Sodium Chloride (Normal Saline) 500 mls @ 999 mls/hr IV STAT [facility] Last Admin: 11/26/18 12:17 Dose: 999 mls/hr Piperacillin Sod/Tazobactam (Sod 3.375 gm/ Sodium Chloride) 50 mls @ 100 mls/ hr IV ONETIME ONE Stop: 11/26/18 14:01 Last Admin: 11/26/18 14:03 Dose: 100 mls/hr Sodium Chloride (Normal Saline) 1,000 mls @ 125 mls/hr IV STAT RACHEL Last Admin: 11/27/18 06:05 Dose: 125 mls/hr - Exam General: Alert, Oriented, Cooperative, No Acute Distress Lungs: Crackles (bibasilar), Wheezing. No: Normal Respiratory Effort (dyspnea with movement) Cardiovascular: Regular Rate, Regular Rhythm, No Murmurs GI/Abdominal Exam: Normal Bowel Sounds, Soft, Non-Tender Extremities: Normal Inspection, Normal Range of Motion, Non-Tender, No Pedal Edema Neurological: No New Focal Deficit Psy/Mental Status: Alert, Normal Affect, Normal Mood - Problem List & Annotations (1) CAP (community acquired pneumonia) SNOMED Code(s): 522720544 Code(s): J18.9 - PNEUMONIA, UNSPECIFIED ORGANISM Status: Acute Current Visit: Yes Qualifiers: Laterality: left Lung location: lower lobe of lung Qualified Code(s): J18.1 - Lobar pneumonia, unspecified organism (2) History of asthma SNOMED Code(s): 604555342 Code(s): Z87.09 - PERSONAL HISTORY OF OTHER DISEASES OF THE RESPIRATORY SYSTEM Status: Chronic Current Visit: Yes (3) GERD (gastroesophageal reflux disease) SNOMED Code(s): 071382418 Code(s): K21.9 - GASTRO-ESOPHAGEAL REFLUX DISEASE WITHOUT ESOPHAGITIS Status: Chronic Current Visit: Yes Qualifiers: Esophagitis presence: esophagitis presence not specified Qualified Code(s) : K21.9 - Gastro-esophageal reflux disease without esophagitis (4) Obesity SNOMED Code(s): 419043188, 872778226 Code(s): E66.9 - OBESITY, UNSPECIFIED Status: Chronic Current Visit: Yes - Problem List Review Problem List Initiated/Reviewed/Updated: Yes - My Orders Last 24 Hours: My Active Orders 11/26/18 15:04 Ambulate [RC] ASDIRECTED Intake and Output [RC] Q12H May Shower [RC] ASDIRECTED Oxygen Therapy [RC] PRN Up ad Mery [RC] ASDIRECTED VTE/DVT Education [RC] PER UNIT ROUTINE Vital Signs [RC] Q4H CULTURE SPUTUM + SMEAR [RM] Stat Acetaminophen [Tylenol] 650 mg PO Q4H PRN Albuterol/Ipratropium [DuoNeb 3.0-0.5 MG/3 ML] 3 ml NEB Q4HRRT PRN Ondansetron [Zofran] 4 mg IVPUSH Q4H PRN Resuscitation Status Routine 11/26/18 15:07 RT Aerosol Therapy [RC] ASDIRECTED STREP PNEUMONIAE ANTIGEN [MREF] Routine 11/26/18 15:15 Azithromycin [Zithromax] 500 mg PO Q24H Enoxaparin [Lovenox] 40 mg SUBCUT Q24H 11/26/18 20:00 Piperacillin/Tazobactam [Piperacil-Tazobact] 3.375 gm Sodium Chloride 0.9% [ Normal Saline] 50 ml IV Q6H 11/26/18 Lunch Regular Diet [DIET] 11/27/18 08:30 Omeprazole 20 mg PO ACBREAKFAST 11/27/18 09:00 DULoxetine [Cymbalta] 30 mg PO DAILY Patient's Own Medication [Ptom] 2 each INH BID 11/27/18 09:30 methylPREDNISolone Sod Succ [Solu-MEDROL] 40 mg IVPUSH Q12H 11/27/18 21:00 Montelukast [Singulair] 10 mg PO BEDTIME - Plan Plan:: This 58 year old female admitted with failed outpatient management of CAP with hx of asthma 1. CAP: Leukocytosis improved. Continue Zosyn and Azithromycin for atypical coverage. BC pending, will obtain sputum if possible. Duonebs caused shakiness, will discontinue restart Proair rescue inhaler. 2. Asthma: Increased wheezing today. Likely has mild asthma exacerbation with CAP now. Start Solumedrol 40 mg IV Q12 and monitor. Continue Symbicort. 3. GERD: Continue Omeprazole. VTE prophylaxis: Lovenox. Dispo: 1-2 days pending improvement.
[2018-11-27] MEDS: methylPREDNISolone Sodium Succinate 40 MG/1 ML SDV IVPUSH SCH ×2 (09:48→21:20)
[2018-11-27] MEDS ORDERED: Albuterol 8 GM Inhaler INH PRN (10:08)
[2018-11-27] MEDS: Fluticasone Propionate Nasal Spray 16 GM Bottle NASBOTH SCH (11:16)
[2018-11-27] MEDS: Azithromycin 250 MG Tab PO SCH (14:33)
[2018-11-27] MEDS: Enoxaparin 40 MG/0.4 ML Syringe SUBCUT SCH (14:34)
[2018-11-27] MEDS ORDERED: Montelukast 10 MG Tab PO SCH (21:00)
[2018-11-28] MEDS: Piperacillin/Tazobactam 3.375 GM in Sodium Chloride 0.9% 50 ML IV SCH ×2 (01:47→08:34)
[2018-11-28 05:24] LABS: BLOOD UREA NITROGEN,BUN 19 mg/dL (7.0-18.0); CARBON DIOXIDE,CO2 23.9 mmol/L (21.0-32.0); CHLORIDE,CL 109 mmol/L (98-107); GLUCOSE RANDOM 164 mg/dL (74-106); POTASSIUM,K 4.2 mmol/L (3.5-5.1); SODIUM,NA 143 mmol/L (136-145)
[2018-11-28] MEDS: Omeprazole 20 MG Cap.CR PO SCH (06:34)
[2018-11-28] MEDS ORDERED: predniSONE 20 MG Tab PO SCH (08:09)
[2018-11-28 08:11] VITALS: BP 146/83; PULSE 64
[2018-11-28] MEDS: BUDESONIDE INH SCH (08:20)
[2018-11-28] MEDS: FORMOTEROL FUMARATE INH SCH (08:20)
[2018-11-28] MEDS: DULoxetine 30 MG Cap PO SCH (08:32)
[2018-11-28] MEDS: Fluticasone Propionate Nasal Spray 16 GM Bottle NASBOTH SCH (08:32)
--- NOTE | 2018-11-28 10:00 | PCM.DCSUM1 ---
Discharge Summary - Hospital Course Brief History: This 58 year old female with pmh of asthma and obesity presented to the ED today with concerns of shortness of breath, productive cough,dizziness , and overall just not feeling well. She reports she was diagnosed with pneumonia last week with her PCP, she was given Levaquin, on day 5 of 7 treatment. She reports she initially started feeling improved, then started feeling ill again yesterday and today. She denies overt fevers, but has some mild chills. She reports productive sputum, sinus congestion, and headache. She reports mild wheezing, she took her rescue inhaler this morning with mild improvement in symptoms. She denies chest pain, palpitations or abdominal pain. No urinary symptoms or diarrhea. She recently felt constipated and did take a laxative, which helped relieve constipation. She denies tobacco use, rare alcohol use and no recreational drug use. In the ED, mild leukocytosis noted at 12,460, BMP WNL, glucose mildly elevated at 123, Troponin negative. EKG SR with no ischemic changes. CXR reveled increasing density at left costophrenic angle. BC, UC and sputum culture to be obtained. VS stable in ED. She was treated with Zosyn. She will be admitted for failed outpatient management of CAP. PCP, Marisol Coronel. - Discharge Data Discharge Date: 11/28/18 Discharge Disposition: Home, Self-Care 01 Condition: Good - Referral to Home Health Primary Care Physician: TAWNYA Bailey - Discharge Diagnosis/Problem(s) (1) CAP (community acquired pneumonia) SNOMED Code(s): 459251105 ICD Code: J18.9 - PNEUMONIA, UNSPECIFIED ORGANISM Status: Acute Current Visit: Yes Qualifiers: Laterality: left Lung location: lower lobe of lung Qualified Code(s): J18.1 - Lobar pneumonia, unspecified organism (2) History of asthma SNOMED Code(s): 039471042 ICD Code: Z87.09 - PERSONAL HISTORY OF OTHER DISEASES OF THE RESPIRATORY SYSTEM Status: Chronic Current Visit: Yes (3) GERD (gastroesophageal reflux disease) SNOMED Code(s): 905433581 ICD Code: K21.9 - GASTRO-ESOPHAGEAL REFLUX DISEASE WITHOUT ESOPHAGITIS Status: Chronic Current Visit: Yes Qualifiers: Esophagitis presence: esophagitis presence not specified Qualified Code(s) : K21.9 - Gastro-esophageal reflux disease without esophagitis (4) Obesity SNOMED Code(s): 416273833, 177894735 ICD Code: E66.9 - OBESITY, UNSPECIFIED Status: Chronic Current Visit: Yes - Discharge Plan Prescriptions/Med Rec: Azithromycin [Zithromax] 500 mg PO Q24H #10 tablet Cefdinir 300 mg PO BID #9 capsule predniSONE 40 mg PO WITHBREAKFAST #8 tablet Home Medications: Home Meds Albuterol [Proair HFA] 1 - 2 inh INH ASDIRECTED PRN 04/10/15 [History] Montelukast Sodium 1 tab PO BEDTIME 04/10/15 [History] Omeprazole 20 mg PO DAILY 09/16/16 [History] Budesonide/Formoterol Fumarate [Symbicort 80-4.5 MCG] 2 inhalation PO ASDIRECTED PRN 11/26/18 [History] DULoxetine HCl [Cymbalta] 30 mg PO DAILY 11/26/18 [History] Ondansetron [Ondansetron ODT] 4 mg PO Q4H PRN 11/26/18 [History] Azithromycin [Zithromax] 500 mg PO Q24H #10 tablet 11/28/18 [Rx] Cefdinir 300 mg PO BID #9 capsule 11/28/18 [Rx] Fluticasone Propionate [Flonase] 1 spray NASBOTH DAILY bottle 11/28/18 [Rx] predniSONE 40 mg PO WITHBREAKFAST #8 tablet 11/28/18 [Rx] Patient Handouts: Cefdinir capsules, Azithromycin tablets, Prednisone tablets, Community-Acquired Pneumonia, Adult, [id number] Referrals: [facility] [Outside] Jenifer Bunch [employer] [Nurse Practitioner] - 12/11/18 12:30 pm - Discharge Summary/Plan Comment DC Time >30 min.: No Discharge Summary/Plan Comment: Admitting diagnoses: Community acquired pneumonia, failed outpatient management Discharge Diagnoses: Community acquired pneumonia, failed outpatient management Asthma exacerbation Ania was admitted for CAP and had mild asthma exacerbation as well. She was treated with Zosyn and Azithromycin since she failed Levaquin outpatient therapy. She was also given small dose Solumedrol IV. She has improved well this morning, no shortness of breaht. No further wheezing, mild cough, but improving as well. She will be discharged home today on Cefdinir and Azithromycin for 5 more days. She is to follow up with PCP in 1 week. She is to continue inhalers at home. She will be given 4 day taper of Prednisone 40 mg. She is to return to ED or clinic if concerns should arise. - General Info Date of Service: 11/28/18 Admission Dx/Problem (Free Text: Admission Diagnosis/Problem Admission Diagnosis/Problem Pneumonia - Review of Systems Pulmonary: Reports: Cough (mild, non productive). Denies: Shortness of Breath Cardiovascular: Denies: Chest Pain Gastrointestinal: Reports: No Symptoms. Denies: Abdominal Pain, Nausea, Vomiting Genitourinary: Reports: No Symptoms Musculoskeletal: Reports: No Symptoms Skin: Reports: No Symptoms Neurological: Reports: No Symptoms Psychiatric: Reports: No Symptoms - Patient Data Vitals - Most Recent: Last Vital Signs Temp 96.8 F 11/28/18 07:20 Pulse 64 11/28/18 07:20 Resp 16 11/28/18 07:20 BP 146/83 H 11/28/18 07:20 Pulse Ox 96 11/28/18 07:20 Weight - Most Recent: 116.12 kg I&O - Last 24 hours: Intake & Output 11/27/18 11/28/18 11/28/18 22:59 06:59 14:59 Intake Total 690 1720 Output Total 450 1450 Balance 240 270 Lab Results - Last 24 hrs: Laboratory Results - last 24 hr 11/28/18 11/28/18 Range/Units 04:45 04:45 WBC 11.87 H (4.0-11.0) K/uL RBC 4.72 (4.30-5.90) M/uL Hgb 13.7 (12.0-16.0) g/dL Hct 43.6 (36.0-46.0) % MCV 92.4 (80.0-98.0) fL MCH 29.0 (27.0-32.0) pg MCHC 31.4 (31.0-37.0) g/dL RDW Std Deviation 47.8 (28.0-62.0) fl RDW Coeff of Noah 14 (11.0-15.0) % Plt Count 329 (150-400) K/uL MPV 10.00 (7.40-12.00) fL Neut % (Auto) 86.5 H (48.0-80.0) % Lymph % (Auto) 8.8 L (16.0-40.0) % Burke % (Auto) 4.5 (0.0-15.0) % Eos % (Auto) 0.0 (0.0-7.0) % Baso % (Auto) 0.2 (0.0-1.5) % Neut # (Auto) 10.3 H (1.4-5.7) K/uL Lymph # (Auto) 1.0 (0.6-2.4) K/uL Burke # (Auto) 0.5 (0.0-0.8) K/uL Eos # (Auto) 0.0 (0.0-0.7) K/uL Baso # (Auto) 0.0 (0.0-0.1) K/uL Nucleated RBC % 0.0 /100WBC Nucleated RBCs # 0 K/uL Sodium 143 (136-145) mmol/L Potassium 4.2 (3.5-5.1) mmol/L Chloride 109 H (98-107) mmol/L Carbon Dioxide 23.9 (21.0-32.0) mmol/L BUN 19 H (7.0-18.0) mg/dL Creatinine 0.8 (0.6-1.0) mg/dL Est Cr Clr Drug Dosing 64.58 mL/min Estimated GFR (MDRD) > 60.0 ml/min Glucose 164 H (74-106) mg/dL Calcium 8.4 L (8.5-10.1) mg/dL DAILY Results - Last 24 hrs: Microbiology 11/26/18 12:05 Urine Culture - Final Urine, Clean Catch MIXED DOMINIC 1,000-10,000 CFU/ML 11/26/18 14:40 Aerobic Blood Culture - Preliminary Blood - Venous - Lab Draw NO GROWTH AFTER 1 DAY Anaerobic Blood Culture - Preliminary NO GROWTH AFTER 1 DAY 11/26/18 14:18 Aerobic Blood Culture - Preliminary Blood - Venous NO GROWTH AFTER 1 DAY Anaerobic Blood Culture - Preliminary NO GROWTH AFTER 1 DAY Med Orders - Current: Current Medications Acetaminophen (Tylenol) 650 mg PO Q4H PRN PRN Reason: Pain (mild 1-3) Last Admin: 11/26/18 15:47 Dose: 650 mg Albuterol (Ventolin Hfa) 0 gm INH Q2H PRN PRN Reason: SOB/wheezing Last Admin: 11/28/18 08:18 Dose: 2 puff Azithromycin (Zithromax) 500 mg PO Q24H [facility] Last Admin: 11/27/18 14:33 Dose: 500 mg Duloxetine HCl (Cymbalta) 30 mg PO DAILY [facility] Last Admin: 11/28/18 08:32 Dose: 30 mg Enoxaparin Sodium (Lovenox) 40 mg SUBCUT Q24H [facility] Last Admin: 11/27/18 14:34 Dose: 40 mg Fluticasone Propionate (Flonase) 0 gm NASBOTH DAILY [facility] Last Admin: 11/28/18 08:32 Dose: 1 spray Piperacillin Sod/Tazobactam (Sod 3.375 gm/ Sodium Chloride) 50 mls @ 100 mls/ hr IV Q6H [facility] Last Admin: 11/28/18 08:34 Dose: 100 mls/hr Montelukast Sodium (Singulair) 10 mg PO BEDTIME [facility] Last Admin: 11/27/18 20:29 Dose: 10 mg Omeprazole (Omeprazole) 20 mg PO ACBREAKFAST [facility] Last Admin: 11/28/18 06:34 Dose: 20 mg Ondansetron HCl (Zofran) 4 mg IVPUSH Q4H PRN PRN Reason: Nausea Budesonide/Formoterol Fumarate [Symbicort 80-4.5mcg ] 2 each INH BID [facility] Last Admin: 11/28/18 08:20 Dose: 2 each Prednisone (Prednisone) 40 mg PO WITHBREAKFAST [facility] Last Admin: 11/28/18 08:31 Dose: 40 mg Discontinued Medications Albuterol/Ipratropium (Duoneb 3.0-0.5 Mg/3 Ml) 3 ml NEB ONETIME ONE Stop: 11/26/18 11:59 Last Admin: 11/26/18 12:16 Dose: 3 ml Albuterol/Ipratropium (Duoneb 3.0-0.5 Mg/3 Ml) 3 ml NEB Q4HRRT PRN PRN Reason: Shortness Of Breath/wheezing Last Admin: 11/27/18 08:37 Dose: 3 ml Sodium Chloride (Normal Saline) 500 mls @ 999 mls/hr IV STAT [facility] Last Admin: 11/26/18 12:17 Dose: 999 mls/hr Piperacillin Sod/Tazobactam (Sod 3.375 gm/ Sodium Chloride) 50 mls @ 100 mls/ hr IV ONETIME ONE Stop: 11/26/18 14:01 Last Admin: 11/26/18 14:03 Dose: 100 mls/hr Sodium Chloride (Normal Saline) 1,000 mls @ 125 mls/hr IV STAT [facility]ACHEL Last Admin: 11/27/18 06:05 Dose: 125 mls/hr Methylprednisolone Sodium Succinate (Solu-Medrol) 40 mg IVPUSH Q12H [facility] Last Admin: 11/27/18 21:20 Dose: 40 mg - Exam General: Reports: Alert, Oriented Lungs: Reports: Clear to Auscultation, Normal Respiratory Effort. Denies: Crackles, Wheezing Cardiovascular: Reports: Regular Rate, Regular Rhythm GI/Abdominal Exam: Normal Bowel Sounds, Soft, Non-Tender Neurological: Reports: No New Focal Deficit Psy/Mental Status: Reports: Alert, Normal Affect, Normal Mood
[2018-11-28] MEDS ORDERED: FLU Vacc QS2019-20(6MOS+)/PF 60 MCG/0.5 ML SYRINGE IM ONE (10:02)
[2018-11-28] MEDS ORDERED: Pneumococcal Polyvalent-23 Vaccine 0.5 ML SDV IM ONE (10:03)
== END 2018-11-28 12:35 | disposition home or self-care (01) ==
LOC: MW.ED 11:37 → MW.MS 13:52
PROVIDERS: ADMIT Internal Medicine; ATTEND Internal Medicine
DX: J18.9 Pneumonia, unspecified organism (principal); J45.901 Unspecified asthma with (acute) exacerbation; K21.9 Gastro-esophageal reflux disease without esophagitis; G43.909 Migraine, unspecified, not intractable, without status migrainosus; E66.9 Obesity, unspecified; Z87.09 Personal history of other diseases of the respiratory system; Z79.2 Long term (current) use of antibiotics; Z88.1 Allergy status to other antibiotic agents; Z91.048 Other nonmedicinal substance allergy status; Z91.018 Allergy to other foods; Z79.899 Other long term (current) drug therapy
CPT/HCPCS: 36415; 71045; 80048; 80053; 81001; 83735; 84484; 85025; 87040; 87086; 90471; 90686; 90732; 93005; 94640; 94664; 96361; 96365; 96366; 96372; 96375; 96376; 99285; A9270; G0378; J1650; J2543; J2920; J7040; J7050; 99283; G0008; G0009; J7620-GY

== ENCOUNTER 2019-08-06 07:49 | Day surgery (SDC) | payer OTHER ==
[~2019-08-06 07:49] MED LIST changes: +Bupivacaine 0.5% 10 ML SDV ONE; +Glycopyrrolate 0.2 MG/ML SDV ONE; +Lidocaine 1% 20 ML MDV ONE; +Lidocaine 2% 5 ML SDV ONE; +Midazolam 1 MG/ML 2 ML SDV ONE; +Propofol 200 MG/20 ML SDV ONE; +Rocuronium 100 MG/10 ML Syringe ONE; +Sodium Chloride 0.9% 10 ML SDV IV PRN; +ceFAZolin 2 GM in Premix Bag 1 BAG IV ONE; +fentaNYL 100 MCG/2 ML SDV ONE; +fentaNYL 250 MCG/5 ML SDV ONE
--- NOTE | 2019-08-06 08:42 | PCM.PREANE ---
Preanesthetic Assessment - Anesthesia/Transfusion/Family Hx Anesthesia History: Prior Anesthesia Without Reaction Other Type of Anesthesia Reaction Comment: hx: Nausea post anesthesia, hx: Motion sickness Family History of Anesthesia Reaction: No Transfusion History: No Prior Transfusion(s) Intubation History: Unknown - Review of Systems General: No Symptoms Pulmonary: No Symptoms Cardiovascular: No Symptoms Gastrointestinal: No Symptoms Neurological: No Symptoms Other: Reports: None - Physical Assessment Height: 5 ft 3 in Weight: 118.388 kg Mental Status: Alert & Oriented x3 Airway Class: Mallampati = 2 Dentition: Reports: Normal Dentition Lungs: Clear to Auscultation, Normal Respiratory Effort Cardiovascular: Regular Rate, Regular Rhythm - Allergies Allergies/Adverse Reactions: Allergies Allergy/AdvReac Type Severity Reaction Status Date / Time house dust Allergy Cough Verified 07/31/19 10:01 nitrofurantoin Allergy Dizziness Verified 07/31/19 10:01 [From Macrobid] nitrofurantoin Allergy Dizziness Verified 07/31/19 10:01 macrocrystalline [From Macrobid] povidone-iodine Allergy Rash Verified 07/31/19 10:01 [From Betadine] soap [From Betadine] Allergy Rash Verified 07/31/19 10:01 spinach Allergy Anaphylactic Verified 07/31/19 10:01 Shock - Blood Blood Available: No - Anesthesia Plan Pre-Op Medication Ordered: None - Acknowledgements Anesthesia Type Planned: MAC Pt an Appropriate Candidate for the Planned Anesthesia: Yes Alternatives and Risks of Anesthesia Discussed w Pt/Guardian: Yes Pt/Guardian Understands and Agrees with Anesthesia Plan: Yes Additional Comments: PMH: MO, Asthma, recently worse, using rescue inhalers more, no escalation to oral steroids, IBS, remote hx or 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 PLAN: MAC PreAnesthesia Questionnaire HEENT History: Reports: Allergic Rhinitis, Other (See Below) Other HEENT History: wears glasses Cardiovascular History: Reports: None Respiratory History: Reports: Asthma, Other (See Below) Other Respiratory History: hx RAD, hospitalized with pneumonia in nov, 2018 Gastrointestinal History: Reports: GERD Genitourinary History: Reports: None 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: Musculoskeletal History: Reports: Arthritis, Back Pain, Chronic, Fracture, Fibromyalgia Other Musculoskeletal History: hx: Fractured Rt Femur 10 yrs of age, Low back pain Neurological History: Reports: Migraines Other Neuro History: hx: Childhood Febrile Seizures Psychiatric History: Reports: Anxiety, Depression Other Psychiatric History: Mild depression, "no chronic issues" Endocrine/Metabolic History: Reports: Obesity/BMI 30+ Hematologic History: Reports: None Immunologic History: Reports: None Oncologic (Cancer) History: Reports: None Dermatologic History: Reports: Other (See Below) Other Dermatologic History: mx of MRSA under breast 11 yrs ago, - Infectious Disease History Infectious Disease History: Reports: Chicken Pox, MRSA, Mumps - Past Surgical History Head Surgeries/Procedures: Reports: None HEENT Surgical History: Reports: Tonsillectomy Cardiovascular Surgical History: Reports: None Respiratory Surgical History: Reports: None GI Surgical History: Reports: Colonoscopy, EGD, Hernia Repair/Other Other GI Surgeries/Procedures: Umbilical hernia repair x2 Female Surgical History: Reports: Hysterectomy, Tubal Ligation Other Female Surgeries/Procedures: Vaginal Hysterectomy Endocrine Surgical History: Reports: None Neurological Surgical History: Reports: None Musculoskeletal Surgical History: Reports: Other (See Below) Other Musculoskeletal Surgeries/Procedures:: closed reduction rt femur with cast application at age 10 Oncologic Surgical History: Reports: None Dermatological Surgical History: Reports: None, Skin Graft - SUBSTANCE USE Smoking Status *Q: Never Smoker Recreational Drug Use History: No - HOME MEDS Home Medications: Home Meds Albuterol [Proair HFA] 1 - 2 inh INH ASDIRECTED PRN 04/10/15 [History] Montelukast Sodium 10 mg PO BEDTIME 04/10/15 [History] Omeprazole 20 mg PO DAILY 09/16/16 [History] Budesonide/Formoterol Fumarate [Symbicort 80-4.5 MCG] 2 inhalation INH DAILY [History] DULoxetine HCl [Cymbalta] 30 mg PO DAILY 11/26/18 [History] Ascorbate Calcium [Vitamin C] 2 tab PO DAILY 08/01/19 [History] Black Current Seed Oil 634 mg PO DAILY 08/01/19 [History] Cholecalciferol (Vitamin D3) [Vitamin D3] 2 tab PO DAILY 08/01/19 [History] Cyanocobalamin (Vitamin B12) [Vitamin B12] 2 tab PO DAILY 08/01/19 [History] Echinacea 400 mg PO DAILY 08/01/19 [History] Zinc Amino Acid Chelate [Zinc] 150 mg PO DAILY 08/01/19 [History] - CURRENT (IN HOUSE) MEDS Current Meds: Current Medications Lactated Ringer's (Ringers, Lactated) 1,000 mls @ 125 mls/hr IV ASDIRECTED RACHEL Sodium Chloride (Saline Flush) 10 ml FLUSH ASDIRECTED PRN PRN Reason: Keep Vein Open Sodium Chloride (Saline Flush) 2.5 ml FLUSH ASDIRECTED PRN PRN Reason: Keep Vein Open Sodium Chloride (Normal Saline) 10 ml IV ASDIRECTED PRN PRN Reason: IV Use Discontinued Medications Bupivacaine HCl (Sensorcaine-Mpf 0.5%) Confirm Administered Dose 20 ml .ROUTE .STK-MED ONE Stop: 08/06/19 07:28 Fentanyl (Sublimaze) Confirm Administered Dose 250 mcg .ROUTE .STK-MED ONE Stop: 08/06/19 06:57 Fentanyl (Sublimaze) Confirm Administered Dose 100 mcg .ROUTE .STK-MED ONE Stop: 08/06/19 07:03 Glycopyrrolate (Robinul) Confirm Administered Dose 0.4 mg .ROUTE .STK-MED ONE Stop: 08/06/19 07:01 Cefazolin Sodium/Dextrose 2 gm (/ Premix) 50 mls @ 100 mls/hr IV ONETIME ONE Stop: 08/05/19 14:52 Lidocaine (Xylocaine-Mpf 2%) Confirm Administered Dose 5 ml .ROUTE .STK-MED ONE Stop: 08/06/19 07:01 Lidocaine (Xylocaine-Mpf 2%) Confirm Administered Dose 5 ml .ROUTE .STK-MED ONE Stop: 08/06/19 07:02 Lidocaine HCl (Xylocaine 1%) Confirm Administered Dose 20 ml .ROUTE .STK-MED ONE Stop: 08/06/19 07:28 Midazolam HCl (Versed 1 Mg/Ml) Confirm Administered Dose 2 mg .ROUTE .STK-MED ONE Stop: 08/06/19 06:57 Midazolam HCl (Versed 1 Mg/Ml) Confirm Administered Dose 2 mg .ROUTE .STK-MED ONE Stop: 08/06/19 07:03 Propofol (Diprivan 20 Ml) Confirm Administered Dose 200 mg .ROUTE .STK-MED ONE Stop: 08/06/19 06:57 Propofol (Diprivan 20 Ml) Confirm Administered Dose 400 mg .ROUTE .STK-MED ONE Stop: 08/06/19 07:03 Rocuronium Hollins (Zemuron) Confirm Administered Dose 100 mg .[address] .[facility] ONE Stop: 08/06/19 07:01
[2019-08-06] MEDS ORDERED: 50% Dextrose in Water 50 ML Syringe IVPUSH PRN (08:51)
[2019-08-06] MEDS ORDERED: fentaNYL 100 MCG/2 ML SDV IVPUSH PRN (08:51)
[2019-08-06] MEDS ORDERED: EPINEPHrine 1:10,000 1 MG/10 ML Syringe IVPUSH PRN (08:51)
[2019-08-06] MEDS ORDERED: Atropine 0.1 MG/ML 10 ML Syringe IVPUSH PRN ×2 (08:51)
[2019-08-06] MEDS ORDERED: Albuterol 0.083% 2.5 MG/3 ML Neb Soln NEB PRN (08:51)
[2019-08-06] MEDS ORDERED: Naloxone 0.4 MG/ML Syringe IVPUSH PRN (08:51)
--- NOTE | 2019-08-06 11:27 | PCM.OPNOTE ---
- General Post-Op/Procedure Note Date of Surgery/Procedure: 08/06/19 Operative Procedure(s): Excision left upper extremity lipoma Findings: 1.5 x 2 x 1 cm and 2 x 1.5 x 1 cm left upper extremity lipomas Pre Op Diagnosis: lipoma Post-Op Diagnosis: lipoma Anesthesia Technique: Local, MAC Fluid Replacement, Intraop: 900 EBL in mLs: 5 Condition: Good Free Text/Narrative:: Intake & Output 08/05/19 08/06/19 08/06/19 22:59 06:59 14:59 Intake Total 900 Balance 900
--- NOTE | 2019-08-06 11:33 | PCM.POSTAN ---
POST ANESTHESIA ASSESSMENT - MENTAL STATUS Mental Status: Alert, Oriented - VITAL SIGNS Vital Signs: Last Vital Signs Temp 36.4 C 08/06/19 11:13 Pulse 66 08/06/19 11:26 Resp 15 08/06/19 11:26 BP 129/68 08/06/19 11:26 Pulse Ox 93 L 08/06/19 11:26 - RESPIRATORY Respiratory Status: Respiratory Rate WNL, Airway Patent, O2 Saturation Stable - CARDIOVASCULAR CV Status: Pulse Rate WNL, Blood Pressure Stable - GASTROINTESTINAL GI Status: No Symptoms - POST OP HYDRATION Hydration Status: Adequate & Stable
[2019-08-06 11:34] VITALS: BP 135/66; PULSE 65
--- NOTE | 2019-08-06 11:47 | PCM48HPAN ---
Post Anesthesia Note - EVALUATION WITHIN 48HRS OF ANESTHETIC Vital Signs in Normal Range: Yes Patient Participated in Evaluation: Yes Respiratory Function Stable: Yes Airway Patent: Yes Cardiovascular Function Stable: Yes Hydration Status Stable: Yes Pain Control Satisfactory: Yes Nausea and Vomiting Control Satisfactory: Yes Mental Status Recovered: Yes Vital Signs: Last Vital Signs Temp 36.1 C 08/06/19 11:30 Pulse 65 08/06/19 11:30 Resp 14 08/06/19 11:30 BP 135/66 08/06/19 11:30 Pulse Ox 96 08/06/19 11:30 - COMMENTS/OBSERVATIONS Free Text/Narrative:: Patient is awake and denies any complaints of pain and wishes to go home.
--- NOTE | 2019-08-07 15:03 | OR ---
SURGEON: OLY BYNUM MD DATE OF PROCEDURE: 08/06/2019 PREOPERATIVE DIAGNOSIS: Left upper extremity lipoma. POSTOPERATIVE DIAGNOSIS: Left upper extremity lipoma. PROCEDURE PERFORMED: Left upper extremity lipoma excision. PRIMARY SURGEON: Oly Bynum MD ANESTHESIA: MAC, local. FLUIDS: 500 mL crystalloid. ESTIMATED BLOOD LOSS: 5 mL. FINDINGS: 1.5 x 2 x 1 cm and 2 x 1.5 x 1 cm left upper extremity lipomas. COMPLICATIONS: None. INDICATIONS: The patient is a 58-year-old female who presented with a symptomatic mass in her left upper extremity. This was located laterally along the midportion of her upper arm. An ultrasound showed a possible lipoma in the area. Given its symptomatic nature, I explained the need for excision. The patient and I discussed the procedure, expected perioperative course, and risks. She verbalized understanding and wishes to proceed. PROCEDURE IN DETAIL: The patient was brought into the OR and placed on the OR table in supine position. A time-out was completed verifying the patient's name, age, date of , allergies, and procedure to be performed. Monitored anesthesia care was induced. The left arm was placed on an armboard and prepped and draped in usual standard fashion. I identified the area of the mass preoperatively with the patient and this had been marked. I palpated the area and then anesthetized it with 1% lidocaine plain. A 15 blade was used to make an incision over the top of this mass. Cautery was used to dissect down to the level of subcutaneous fat. I then palpated inside my incision and could feel a firm nodule. Some pressure was applied to the sides of my incision and the lipomatous tissue was delivered through the wound. I grasped this mass and it easily from the surrounding tissues without need for dissection. This was placed on the back table and measured. It appeared to be a lipoma and measured 1.5 x 2 x 1 cm in size. I then palpated inside the wound again and felt another similarly sized and feeling mass. Using some gentle blunt dissection, I was able to free this from the surrounding subcutaneous fat and deliver it through the incision. This was placed on the back table and measured. It measured 2 x 1.5 x 1 cm in size. There were no margins with either of these masses. The wound was then irrigated with normal saline and hemostasis was achieved with electrocautery. I then closed the left upper extremity wound with interrupted 3-0 Vicryl sutures in the subcutaneous fat layer, and I closed the skin with a running 4-0 Monocryl stitch. Steri-Strips and sterile dressings were applied. The patient tolerated the procedure well and was transferred to the PACU in stable condition. All counts were complete and correct at the end of the case. CHAYA JONES /[id number]
== END 2019-08-06 12:06 | disposition home or self-care (01) ==
LOC: MW.SDS 07:49
PROVIDERS: ATTEND Surgery
DX: D17.22 Benign lipomatous neoplasm of skin and subcutaneous tissue of left arm (principal); J45.909 Unspecified asthma, uncomplicated; F41.9 Anxiety disorder, unspecified; F32.9 Major depressive disorder, single episode, unspecified; E66.9 Obesity, unspecified; Z79.899 Other long term (current) drug therapy; Z88.1 Allergy status to other antibiotic agents; Z88.8 Allergy status to other drugs, medicaments and biological substances
CPT/HCPCS: 11402; 12031; 88304; J2001; J2250; J2704; J3010; J7120; 00400; J3490

== ENCOUNTER 2023-09-12 07:13 | Day surgery (SDC) | payer MEDICARE, MEDICAID ==
[~2023-09-12 07:13] MED LIST changes: -Bupivacaine 0.5% 10 ML SDV ONE; -Glycopyrrolate 0.2 MG/ML SDV ONE; -Lactated Ringers 1,000 ML IV SCH; -Lidocaine 1% 20 ML MDV ONE; -Lidocaine 2% 5 ML SDV ONE; -Midazolam 1 MG/ML 2 ML SDV ONE; -Propofol 200 MG/20 ML SDV ONE; -Rocuronium 100 MG/10 ML Syringe ONE; -Sodium Chloride 0.9% 10 ML SDV IV PRN; +Sodium Chloride 0.9% 20 ML SDV IV PRN; -ceFAZolin 2 GM in Premix Bag 1 BAG IV ONE; -fentaNYL 100 MCG/2 ML SDV ONE; -fentaNYL 250 MCG/5 ML SDV ONE
[2023-09-12] MEDS ORDERED: propofoL 50 ML ONE (07:34)
[2023-09-12] MEDS: Lactated Ringers 1,000 ML IV SCH (08:00)
[2023-09-12] MEDS ORDERED: dexmedeTOMIDine HCl 200 MCG/2 ML SDV ONE (08:57)
[2023-09-12 10:58] VITALS: BP 136/73; PULSE 63
== END 2023-09-12 10:20 | disposition home or self-care (01) ==
LOC: MW.SDS 07:13
PROVIDERS: ATTEND Surgery
DX: Z12.11 Encounter for screening for malignant neoplasm of colon (principal); D12.2 Benign neoplasm of ascending colon; K29.50 Unspecified chronic gastritis without bleeding; K21.00 Gastro-esophageal reflux disease with esophagitis, without bleeding; K44.9 Diaphragmatic hernia without obstruction or gangrene; J45.909 Unspecified asthma, uncomplicated; F32.A Depression, unspecified; I10 Essential (primary) hypertension; Z79.899 Other long term (current) drug therapy; Z88.8 Allergy status to other drugs, medicaments and biological substances
CPT/HCPCS: 43239; 45380; J2704; J7120; 00813; 88305; J3490

== ENCOUNTER 2024-08-06 09:14 | Emergency (ER) | payer MEDICARE, MEDICAID ==
[2024-08-06 09:38] LABS: BASOPHILS ABSOLUTE AUTO 0.05 K/uL (0.00-0.20); BASOPHILS PERCENT AUTO 0.5 % (0.0-1.0); EOSINOPHILS ABSOLUTE AUTO 0.51 K/uL (0.00-0.45); EOSINOPHILS PERCENT AUTO 4.7 % (0.0-6.0); HEMATOCRIT 45.7 % (37.0-47.0); HEMOGLOBIN 14.7 g/dL (12.0-16.0); IMMATURE GRAN ABSOLUTE AUTO 0.04 K/uL (0.00-0.05); IMMATURE GRAN PERCENT AUTO 0.4 % (0.0-0.4); LYMPHOCYTES ABSOLUTE AUTO 2.42 K/uL (1.00-4.80); LYMPHOCYTES PERCENT AUTO 22.3 % (24.0-44.0); MEAN CORPUSCULAR HEMOGLOBIN 28.6 pg (28.0-32.0); MEAN CORPUSCULAR HGB CONC 32.2 g/dL (32.0-36.0); MEAN CORPUSCULAR VOLUME 88.9 fL (83.0-99.0); MEAN PLATELET VOLUME 9.8 fL (9.4-12.3); MONOCYTES ABSOLUTE AUTO 0.79 K/uL (0.00-0.80); MONOCYTES PERCENT AUTO 7.3 % (0.0-8.0); NEUTROPHILS ABSOLUTE AUTO 7.05 K/uL (1.80-7.70); NEUTROPHILS PERCENT AUTO 64.8 % (41.0-71.0); PLATELET COUNT,PLT 297 K/uL (150-400); RED BLOOD CELL COUNT 5.14 M/uL (4.10-5.30); WHITE BLOOD CELL COUNT,WBC 10.86 K/uL (3.9-11.3)
[2024-08-06] MEDS: Aspirin 81 MG Tab.Chew PO ONE (09:52)
[2024-08-06] MEDS ORDERED: Sodium Chloride 0.9% 2.5 ML Syringe FLUSH PRN (10:03)
[2024-08-06] MEDS ORDERED: Sodium Chloride 0.9% 20 ML SDV IV PRN (10:03)
[2024-08-06] MEDS ORDERED: Sodium Chloride 0.9% 10 ML Syringe FLUSH PRN (10:03)
[2024-08-06 10:05] LABS: A/G RATIO 0.7 (0.9-1.6); ALANINE AMINOTRANSFERASE,ALT 14 IU/L (14-63); ALBUMIN 2.9 g/dL (3.4-5.0); ALKALINE PHOSPHATASE 140 U/L (46-116); ASPARTATE AMNIOTRANSFERASE,AST 17 IU/L (15-37); BILIRUBIN TOTAL 1.1 mg/dL (0.2-1.0); BLOOD UREA NITROGEN,BUN 15 mg/dL (7.0-18.0); CALCIUM 8.7 mg/dL (8.5-10.1); CARBON DIOXIDE,CO2 25.1 mmol/L (21.0-32.0); CHLORIDE,CL 105 mmol/L (98-107); CREATININE 0.9 mg/dL (0.6-1.0); EST CRCL DRUG DOSING (CG) 53.81 mL/min; GLUCOSE RANDOM 109 mg/dL (74-106); LIPASE 16 U/L (16-77); POTASSIUM,K 3.5 mmol/L (3.5-5.1); SODIUM,NA 140 mmol/L (136-145)
[2024-08-06 10:06] LABS: ESTIMATED GFR 71 mL/min (>60)
[2024-08-06] MEDS: hydrALAZINE 20 MG/ML SDV IVPUSH ONE (10:22)
[2024-08-06 12:53] VITALS: BP 168/78; PULSE 72
== END 2024-08-06 12:55 | disposition home or self-care (01) ==
LOC: MW.ED 09:14
DX: R07.9 Chest pain, unspecified (principal); I10 Essential (primary) hypertension; E66.9 Obesity, unspecified; Z91.048 Other nonmedicinal substance allergy status; Z91.09 Other allergy status, other than to drugs and biological substances; Z88.8 Allergy status to other drugs, medicaments and biological substances; Z79.899 Other long term (current) drug therapy; Z90.710 Acquired absence of both cervix and uterus; Z75.3 Unavailability and inaccessibility of health-care facilities
CPT/HCPCS: 36415; 71045; 80053; 83690; 84484; 85025; 93005; 96374; 99285; A9270; J0360; 93010; 99284